=== PATIENT | female | born 1960 | race Caucasian/White ===

== ENCOUNTER 2021-02-21 09:21 | Emergency (ER) | payer BC ==
[~2021-02-21] VITALS: Ht 160 cm; Wt 79.0 kg
[2021-02-21] MEDS ORDERED: IV NORMAL SALINE 1000ML BAG 1,000 ML IV ONE (09:45)
[2021-02-21] MEDS ORDERED: KETAMINE HCL 500 MG/10 ML VIAL. IV ONE (09:45)
[2021-02-21] MEDS ORDERED: MIDAZOLAM HCL/PF 5 MG/5 ML VIAL. IV ONE (09:45)
[2021-02-21] MEDS ORDERED: fentaNYL PF VIAL 100 MCG/2 ML VIAL IVP ONE (09:45)
--- NOTE | 2021-02-21 09:49 | PHYS DOC ---
Past Medical History Additional Past Medical Histor: OTC VITAMINS Past Surgical History: Hysterectomy, Other Additional Past Surgical Histo: BX BUNIONECTOMY, R2ND TOE CORRECION Smoking Status: Never Smoker Alcohol Use: Occasionally General Adult EDM: Chief Complaint: LOWEREXTREMITY INJURY HPI: HPI: 60-year-old female past medical history of osteopenia with estrogen patch and " joint hypermobility," (see physiotherapy to you for subluxed ribs, takes compounded analgesia-has gabapentin in it), complains of right ankle pain after twisting her ankle in her garage, just prior to arrival. Is not on any anticoagulants. Is not under the influence of any alcohol or drugs. Did not hit her head or lose consciousness. Review of Systems: Review of Systems: Constitutional: Denies fever or chills. [] Eyes: Denies change in visual acuity. [] HENT: Denies nasal congestion or sore throat. [] Respiratory: Denies cough or shortness of breath. [] Cardiovascular: Denies chest pain or edema. [] GI: Denies nausea, vomiting, : Denies saddle anesthesia, urinary or bowel retention or incontinence Musculoskeletal: Denies back pain or CVA tenderness Integument: Denies rash or diaphoresis Neurologic: Denies headache, focal weakness or sensory changes. [] Endocrine: Denies polyuria or polydipsia. [] Lymphatic: Denies swollen glands. [] Psychiatric: Denies depression or anxiety. [] Heart Score: C/O Chest Pain: No Risk Factors: Risk Factors: DM, Current or recent (<one month) smoker, HTN, HLP, family history of CAD, obesity. Risk Scores: Score 0 - 3: 2.5% MACE over next 6 weeks - Discharge Home Score 4 - 6: 20.3% MACE over next 6 weeks - Admit for Clinical Observation Score 7 - 10: 72.7% MACE over next 6 weeks - Early Invasive Strategies Current Medications: Current Medications Medications (Trade) Dose Ordered Sig/Shahriar Start Time Stop Time Status Last Admin Dose Admin Fentanyl Citrate (Fentanyl 2ml Vial) 75 mcg 1X ONCE 02/21/21 09:45 02/21/21 09:46 DC Ketamine HCl (Ketamine) 160 mg 1X ONCE 02/21/21 09:45 02/21/21 09:46 DC Midazolam HCl (Versed) 2 mg 1X ONCE 02/21/21 09:45 02/21/21 09:46 DC Sodium Chloride 1,000 ml @ 1,000 mls/hr 1X ONCE 02/21/21 09:45 02/21/21 10:44 Allergies: Allergies: Allergies Coded Allergies Type Severity Reaction Last Updated Verified No Known Drug Allergies 02/21/21 No Physical Exam: PE: Constitutional: Uncomfortable and in pain/tearful HENT: Normocephalic, atraumatic, Eyes: EOMI, conjunctiva normal, no discharge. Neck: Normal range of motion, supple, no midline neck pain Cardiovascular: S1/2 present, regular rhythm Lungs & Thorax: Speaking in full sentences, bilateral equal chest rise, no tachypnea or increased work of breathing Abdomen: soft, no tenderness, no hip tenderness Skin: Warm, dry, no erythema, no rash. [] Back: No midline step-offs or tenderness, no CVA tenderness. [] Extremities: Significant medial right ankle deformity and pain with intact dp/pt pulses, L5-S1 sensation intact, cap refill less than 1 second, no pain at right fibular head or knee, is able to bend right knee Neurologic: Alert and oriented X 3, normal sensory function, no focal deficits noted. [] Psychologic: Affect normal, judgement normal, mood normal. [] Current Patient Data: Vital Signs: Vital Signs Date Time Temp Pulse Resp B/P (MAP) Pulse Ox O2 Delivery O2 Flow Rate FiO2 02/21/21 09:21 98.6 86 16 132/70 Room Air 98.6 EKG: EKG: [] Radiology/Procedures: Radiology/Procedures: IMAGING REPORT Signed PATIENT: DMITRI THOMPSON ACCOUNT: [id number] : 1960 LOCATION: ER AGE: 60 SEX: F EXAM STATUS: PRE ER ORD. PHYSICIAN: GARTH PLATT DO REASON: dislocated PROCEDURE: ANKLE RIGHT 2V XR FOOT_RIGHT 2 VIEWS, XR EXAM OF ANKLE_RIGHT 2 VIEWS, XR RT TIBIA+FIBULA , XR KNEE 3 VIEWS_RT History: Reason: dislocated / Spl. Instructions: / History: Pain Technique: 3 views right knee, 2 views right tibia and fibula, 2 views right ankle and 2 views right foot Comparison: None. Findings: Normal alignment of the knee. No acute fracture. No significant knee joint effusion. Mild patellar spurring. Probable chronic proximal fibular fracture. Acute displaced comminuted the right medial malleolus fracture. Acute displaced posterior malleolus fracture. Acute displaced right distal fibular fracture. Dislocation of the tibia in relation to the talus medially. Postoperative changes right first proximal phalanx and metatarsal. Chronic deformity of the second proximal phalanx. Impression: 1. Acute comminuted right ankle fracture dislocation. Electronically signed by: Markus Castelan DO (02/21/2021 10:15 AM) [id number] DICTATED and SIGNED BY: MARKUS CASTELAN DO DATE: 02/21/21 [id number] IMAGING REPORT Signed PATIENT: DMITRI THOMPSON ACCOUNT: [id number] : 1960 LOCATION: ER AGE: 60 SEX: F EXAM STATUS: PRE ER ORD. PHYSICIAN: GARTH PLATT DO REASON: POST REDUCTION PROCEDURE: ANKLE RIGHT 2V EXAMINATION: XR EXAM OF ANKLE_RIGHT 2 VIEWS CLINICAL HISTORY: Right ankle fracture status post reduction TECHNIQUE: XR EXAM OF ANKLE_RIGHT 2 VIEWS COMPARISON: 02/21/2021 9:44 AM FINDINGS/ IMPRESSION: Improved alignment of the tibiotalar and talofibular joints as well as improved alignment of the trimalleolar fracture status post interval reduction and application of fiberglass cast/splint. Electronically signed by: Paolo Rush DO (02/21/2021 11:24 AM) [id number] DICTATED and SIGNED BY: PAOLO RUSH DO DATE: 02/21/21 [id number] Impression: Indication: RIGHT ANKLE Joint dislocation Consent: Consent was obtained. Procedure: The pre-reduction exam showed distal perfusion and neurologic function to be normal.. The patient was placed in the appropriate position. Anesthesia/pain control successfully with Versed and ketamine. Reduction of the right ankle was performed by GAME ROOM ATTENDANT and myself. Post reduction films were obtained and revealed satisfactory reduction. A post-reduction exam revealed distal perfusion and neurologic function to be normal-DP/PT intact pre and post procedure. The affected area was immobilized with sugar tong splint. The patient tolerated the procedure well. Complications: none. Pt and at bedside informed of findings/showed xraus. Splint applied by shipyard supervisor and myself. The splint is checked by myself, with appropriate stabilization of the injury. Distal capillary refill normaland distal neurologic function intact Course & Med Decision Making: Course & Med Decision Making Pertinent Labs and Imaging studies reviewed. (See chart for details) Concern for comminuted right pleural bilateral malleoli fracture dislocation with successful reduction. Xray Films reviewed with orthopedic surgeon Dr. Farr who recommends outpatient follow-up within the next week. Crutches and splint instructions given. Patient tolerated monitorate sedation successfully-was sober with medical decision-making capacity at time of discharge. Patient was emotional /tearful due to loss of sister to brain cancer, recent move with h/o homelessness, recent fci and getting a new job/awaiting insurance. very supportive. Patient with no homicidal or suicidal ideations. Will discharge home with strict ED return precautions were given for severe pain, neurologic deficits, compartment syndrome instructions and repeat injury. Encouraged urgent outpatient follow-up with PMD and orthopedic surgery. Life-threatening processes were considered but are low suspicion at this time, given history, physical exam and ED workup. Pt was educated on all prescription medications and adverse effects. All patient's questions were answered and pt was stable at time of discharge. Life/limb-threatening differential includes but is not limited to, trauma (fracture, dislocation, laceration, compartment syndrome, tendon or ligament injury), neurovascular injury or deficitcva/tia, infection (osteomyelitis, abscess, cellulitis, septic arthritis, necrotizing fasciitis), deep vein thrombosis, renal/cardiac/liver disease, medication adverse effect, lymphe jacky/anasarca, vascular insufficiency or malignancy, I have spoken with the patient and/or caregivers. I explained the patient's condition, diagnoses and treatment plan based on the information available to me at this time. I have answered the patient and/or caregiver's questions and addressed any concerns. The patient and/or caregivers have a good understanding of patient's diagnosis, condition and treatment plan as can be expected at this point. Vital signs have been stable. Patient's condition is stable and appropriate for discharge from the emergency department. Patient will pursue further outpatient evaluation with primary care physician or other designated or consulting physician as outlined in the discharge instructions. The patient and/or caregivers are agreeable to this plan of care and follow-up instructions have been explained in detail. The patient and/or caregivers have received these instructions in written form and have expressed an understanding of the discharge instructions. The patient and/or caregivers are aware that any significant change of condition or worsening of symptoms should prompt immediate return to this or the closest emergency department or call to 911. Kirk Disclaimer: Dragmina Disclaimer: This electronic medical record was generated, in whole or in part, using a voice recognition dictation system. Departure Departure Impression: Primary Impression: Ankle fracture, bimalleolar, closed Additional Impression: Dislocation of right ankle joint Disposition: HOME / SELF CARE / HOMELESS Condition: STABLE Referrals: MARIALUISA ORR MD Follow-up with your primary care physician in 24 to 48 hours OR FOLLOW UP WITH FAMILY MEDICINE: [id number] [facility], [facility] [address] [place] [address] Patient Instructions: Ankle Dislocation, Ankle Fracture, Cast or Splint Care, Crutch Use, Sedation or General Anesthesia, Adult, Care After Additional Instructions: FOLLOW UP WITH ORTHOPEDICS: ON Monday02/22/21 Orthopaedic Surgery [address] [facility], [facility] [address] [place] [address] EMERGENCY DEPARTMENT GENERAL DISCHARGE INSTRUCTIONS Thank you for coming to [facility] Emergency Department (ED) today and trusting us with you care. We trust that you had a positive experience in our Emergency Department. If you wish to speak to the department management, you may call the Director at [phone]. YOUR FOLLOW UP INSTRUCTIONS ARE FOLLOWS: 1. Do you have a private Doctor? If you do not have a private doctor, please ask for a resource list of physicians or clinics that may be able to assist you with follow up care. ADDITIONAL INSTRUCTIONS AND INFORMATION: 1. Your care today has been supervised by a physician who is specially trained in emergency care. Many problems require more than one evaluation for a complete diagnosis and treatment. We recommend that you schedule your follow up appointment as recommended to ensure complete treatment of you illness or injury. If you are unable to obtain follow up care and continue to have a problem, or if your condition worsens, we recommend that you return to the ED. 2. We are not able to safely determine your condition over the phone nor are we able to give sound medical advice over the phone. For these safety reasons, if you call for medical advice we will ask you to come to the ED for further evaluation. 3. If you have any questions regarding these discharge instructions please call the ED at [phone]. SAFETY INFORMATION: In the interest of safety, wellness, and injury prevention; we encourage you to wear your sealbelt, if you smoke; quite smoking, and we encourage family to use a protective helmet for bicycling and other sporting events that present an increased risk for head injury. IF YOUR SYMPTOMS WORSEN OR NEW SYMPTOMS DEVELOP, OR YOU HAVE CONCERNS ABOUT YOUR CONDITION; OR IF YOUR CONDITION WORSENS WHILE YOU ARE WAITING FOR YOUR FOLLOW UP APPOINTMENT; EITHER CONTACT YOUR PRIMARY CARE DOCTOR, THE PHYSICIAN WHOSE NAME AND NUMBER YOU WERE GIVEN, OR RETURN TO THE ED IMMEDIATELY. Scripts Hydrocodone Bit/Acetaminophen (HYDROCODONE-APAP 10-325 ) 1 Tab Tablet 1 TAB PO PRN Q6HRS PRN for PAIN for 5 Days, #20 TAB 0 Refills Prov: GARTH PLATT DO 02/21/21 Meloxicam (MELOXICAM) 7.5 Mg Tablet 1 TAB PO BID for 7 Days, #14 TAB 0 Refills Prov: GARTH PLATT DO 02/21/21 GARTH PLATT DO Feb 21, 2021 09:49
[2021-02-21 10:12] VITALS: BP 118/51
--- NOTE | 2021-02-21 10:18 | RAD ---
XR FOOT_RIGHT 2 VIEWS, XR EXAM OF ANKLE_RIGHT 2 VIEWS, XR RT TIBIA+FIBULA , XR KNEE 3 VIEWS_RT History: Reason: dislocated / Spl. Instructions: / History: Pain Technique: 3 views right knee, 2 views right tibia and fibula, 2 views right ankle and 2 views right foot Comparison: None. Findings: Normal alignment of the knee. No acute fracture. No significant knee joint effusion. Mild patellar sp urring. Probable chronic proximal fibular fracture. Acute displaced comminuted the right medial malleolus fracture. Acute displaced posterior malleolus f racture. Acute displaced right distal fibular fracture. Dislocation of the tibia in relation to the t alus medially. Postoperative changes right first proximal phalanx and metatarsal. Chronic deformity of the second pr oximal phalanx. Impression: 1. Acute comminuted right ankle fracture dislocation. Electronically signed by: Markus Castelan DO (02/21/2021 10:15 AM) [id number]
--- NOTE | 2021-02-21 11:26 | RAD ---
EXAMINATION: XR EXAM OF ANKLE_RIGHT 2 VIEWS CLINICAL HISTORY: Right ankle fracture status post reduction TECHNIQUE: XR EXAM OF ANKLE_RIGHT 2 VIEWS COMPARISON: 02/21/2021 9:44 AM FINDINGS/ IMPRESSION: Improved alignment of the tibiotalar and talofibular joints as well as improved alignment of the trim alleolar fracture status post interval reduction and application of fiberglass cast/splint. Electronically signed by: Paolo Tran DO (02/21/2021 11:24 AM) [id number]
[2021-02-21] MEDS ORDERED: HYDROmorphone 2 MG/ML VIAL IVP ONE (12:45)
[2021-02-21] MEDS ORDERED: HYDR-2769 PO ×2 (12:46→13:11)
[2021-02-21] MEDS ORDERED: MELO7.5T29 PO (12:46)
[2021-02-21 13:38] VITALS: BP 112/61
== END 2021-02-21 13:38 | disposition home or self-care (01) ==
LOC: ER 09:21
DX: S82.841A Displaced bimalleolar fracture of right lower leg, initial encounter for closed fracture (principal); M25.561 Pain in right knee; X50.9XXA Other and unspecified overexertion or strenuous movements or postures, initial encounter; Y93.89 Activity, other specified; Y92.89 Other specified places as the place of occurrence of the external cause; Y99.8 Other external cause status
CPT/HCPCS: 12011; 27810; 73562; 73590; 73600; 73620; 96361; 96374; 99285; J1170; J2250; J3010; J3490; J7030; 27818